=== PATIENT | male | born 1950 | race African-American/Black ===

== ENCOUNTER 2022-01-03 08:32 | Emergency (ER) | payer MEDICARE, BC ==
[~2022-01-03] VITALS: Ht 175.3 cm; Wt 91.0 kg
[2022-01-03 09:40] LABS: BASOPHILS % 0.6 % (0.0-2.0); EOSINOPHILS % 3.5 % (0.0-5.0); HEMATOCRIT. 39.4 % (42.0-52.0); HEMOGLOBIN. 12.8 g/dL (14.0-18.0); LYMPHOCYTES % 15.3 % (20.0-50.0); MEAN CORPUSCULAR HEMOGLOBIN 27.2 pg (28.0-32.0); MEAN PLATELET VOLUME 7.4 fl (7.4-10.4); MONOCYTES % 7.9 % (2.0-8.0); NEUTROPHILS % 72.7 % (40.0-76.0); PLATELET 337 x1000/uL (130-400); RED BLOOD CELL COUNT 4.69 mill/uL (4.7-6.1); RED CELL DISTRIBUTION WIDTH 13.3 % (11.6-14.6)
[2022-01-03 09:50] LABS: CHLORIDE 110 mEq/L (98-107)
[2022-01-03 09:51] LABS: PROTHROMBIN TIME 10.7 sec (9.6-11.0)
[2022-01-03 10:08] LABS: CLARITY URINE TURBID (CLEAR); COLOR URINE RED (YELLOW); KETONES URINE NEGATIVE (NEGATIVE); LEUKOCYTE ESTERASE URINE 2+ (NEGATIVE); NITRITE URINE POSITIVE (NEGATIVE); OCCULT BLOOD URINE 2+ (NEGATIVE); PROTEIN URINE 2+ (NEGATIVE); SPECIFIC GRAVITY URINE 1.018 (1.005-1.030); UROBILINOGEN URINE 0.2 E.U./dL (0.2-1.0)
[2022-01-03] MEDS ORDERED: CEFTRIAXONE 1 G PREMIX 50 ML IV ONE (11:30)
[2022-01-03] MEDS ORDERED: CIPR500S3 PO (11:57)
[2022-01-03 13:26] VITALS: BP 158/89
== END 2022-01-03 13:27 | disposition home or self-care (01) ==
LOC: ER 08:57
DX: N30.90 Cystitis, unspecified without hematuria (principal); I10 Essential (primary) hypertension; Z98.890 Other specified postprocedural states
CPT/HCPCS: 36415; 74176; 80053; 81003; 83690; 85025; 85610; 86850; 86900; 86901; 96365; 99284; J0696